=== PATIENT | female | born 1965 | race Caucasian/White ===

== ENCOUNTER 2017-06-15 07:26 | Emergency (ER) | payer SELFPAY ==
[~2017-06-15] VITALS: Ht 172.7 cm; Wt 60.0 kg
[2017-06-15 07:31] VITALS: BP 134/90; PULSE 79; RESP 16; TEMP 98.2; O2SAT 99
[2017-06-15] MEDS ORDERED: PRED20 PO (07:51)
[2017-06-15] MEDS ORDERED: KETOROLAC TROMETHAMINE 60 MG/2 ML (IM) VIAL IM ONE (08:00)
--- NOTE | 2017-06-15 08:06 | PD ---
HPI Chief Complaint: Injury Time Seen by Provider: 07:38 Travel History International Travel<30 days: No Contact w/Intl Traveler<30days: No Traveled to known affect area: No History of Present Illness HPI 51-year-old female presents emergency department with history of generalized joint pain for months, but recently worse in the left shoulder over the past week. Patient states she has had joint pain off and on for a long time. She does not take any medications. She states she has never been worked up for arthritis, rheumatoid arthritis, lupus, or other arthritic diseases. She is here today as the pain is 10 out of 10 in the left shoulder. There is been no recent trauma. She denies fever, chills, or other constitutional symptoms. The patient has no local primary care physician. Patient has no known drug allergies. [facility] Social History Alcohol Use: No Tobacco Use: No Substance Use: No Allergies-Medications (Allergen,Severity, Reaction): Coded Allergies: No Known Allergies (Unverified , 06/15/17) Reported Meds & Prescriptions Reported Meds & Active Scripts Active Prednisone 20 Mg Tab 20 Mg PO BID 5 Days Review of Systems Except as stated in HPI: all other systems reviewed are Neg General / Constitutional: No: Fever Eyes: No: Visual changes HENT: No: Headaches Cardiovascular: No: Chest Pain or Discomfort Respiratory: No: Shortness of Breath Gastrointestinal: No: Abdominal Pain Genitourinary: No: Dysuria Musculoskeletal: No: Pain Skin: No Rash Neurologic: No: Weakness Psychiatric: No: Depression Endocrine: No: Polydipsia Hematologic/Lymphatic: No: Easy Bruising Physical Exam Narrative GENERAL: Patient appears in mild distress. SKIN: Warm and dry. Normal color. Normal turgor. No rash. No erythema. HEAD: Atraumatic. Normocephalic. EYES: Pupils equal and round. No scleral icterus. No injection or drainage. ENT: No nasal bleeding or discharge. Mucous membranes pink and moist. Pharynx is clear. Airways patent. NECK: Trachea midline. Supple and nontender. No bony tenderness. CARDIOVASCULAR: Regular rate and rhythm. RESPIRATORY: No accessory muscle use. Clear to auscultation. Breath sounds equal bilaterally. MUSCULOSKELETAL: Extremities without clubbing, cyanosis, or edema. No obvious deformities. Patient has no swelling of joints. She has no point tenderness with palpation to either shoulder. There is no sign of dislocation. Patient can move all of her joints through the ranges of motion with discomfort more on the left than the right. There is no crepitus appreciated. NEUROLOGICAL: Awake and alert. No obvious cranial nerve deficits. Motor grossly within normal limits. Five out of 5 muscle strength in the arms and legs. Normal speech. PSYCHIATRIC: Appropriate mood and affect; insight and judgment normal. Data Data Last Documented VS Vital Signs Date Time Temp Pulse Resp B/P (MAP) Pulse Ox O2 Delivery O2 Flow Rate FiO2 06/15/17 07:31 98.2 79 16 134/90 (105) 99 Orders Orders Ketorolac Inj (Toradol Inj) (06/15/17 08:00) [facility] Medical Decision Making Medical Screen Exam Complete: Yes Emergency Medical Condition: Yes Differential Diagnosis Left shoulder arthritis. Bursitis. Lupus. Rheumatoid arthritis. Narrative Course Patient is medically stable at time of exam. Radiographic imaging is not felt warranted based on my history and physical at this time. Patient is given Toradol 60 mg IM. Patient is continued on prednisone 20 mg twice daily 5 days. Discussed the need for the patient to follow with her primary care physician for further evaluation and workup for arthritis. Patient can return with worsening symptoms as needed. Diagnosis Primary Impression: Arthritis Referrals: [facility] Patient Instructions: General Instructions, Prednisone (By mouth) Additional Instructions: Radiographic imaging is not felt warranted based on my history and physical at this time. Patient is given Toradol 60 mg IM. Patient is continued on prednisone 20 mg twice daily 5 days. Discussed the need for the patient to follow with her primary care physician for further evaluation and workup for arthritis. Patient can return with worsening symptoms as needed. Med/Other Pt SpecificInfo: Prescription(s) given Scripts Prednisone (Prednisone) 20 Mg Tab 20 MG PO BID for 5 Days, #10 TAB 0 Refills Prov: Adebayo Israel MD 06/15/17 Disposition: 01 DISCHARGE HOME Condition: Stable Dl Cr Jun 15, 2017 08:06
== END 2017-06-15 08:22 | disposition home or self-care (01) ==
LOC: NEPD 07:26
DX: M19.90 Unspecified osteoarthritis, unspecified site (principal)
CPT/HCPCS: 96372; 99283; J1885